=== PATIENT | male | born 1940 | race Caucasian/White ===

== ENCOUNTER → 2017-02-02 | Outpatient (CLI) | payer MEDICARE, BC ==
[~2017-02-02] MED LIST: ACET160S6 GT; ASPI325T OR; ASPI325T PO; BROMOCRIPTINE MESYLATE PO; Docusate Sod/Senna PO; FENT100D25 TD; FENTANYL PATCH TOP; GLIM1TAB PO; GLIP2.5T6 PO; HCTZ; KEPP1TAB2 PO; KEPP500T13 PO; LAMO10TA PO; LAMO25TA2 PO; LISI-538 PO; LISINIPRIL PO; LOVE1INJ SC; METFORMIN PO; MILKSUS PO; NORV2TAB PO; NORV5TAB PO; OMEP20TA7 OR; OTC ALLERGY MED; PARO20TA3 PO; PAXI20TA OR; PEG1POW PO; PERCOCET PO; QUET1TAB7 PO; SERO1TAB3 PO; SIMV40TA2 PO; SIMVASTATIN PD; VIMP100T PO; ZOFR20TA PO; ZYPR5TAB OR
--- NOTE | 2017-02-02 11:14 | REP ---
CT CERVICAL SPINE WITHOUT CONTRAST: HISTORY: Cervicalgia. There is no acute fracture or subluxation. A disc bulge is present at the C3-4 level. Disc bulges with associated osteophyte formation are present at the C4-5 through C6-7 levels. There is minimal narrowing of the spinal canal. Uncinate process and/or facet hypertrophy are present at the C3-4 through C6-7 levels. These findings produce minimal to severe narrowing of the neural foramina. The C3-4 through C6-7 intervertebral discs are decreased in height consistent with disc degeneration. IMPRESSION: 1. There is no acute fracture or subluxation. 2. There is cervical spondylosis at the C3-4 through C6-7 levels. Signed by Jaime Watson MD 02/02/2017 11:28 A
== END ==
LOC: M RAD 09:55
PROVIDERS: ATTEND Psychiatry & Neurology Neurology
DX: M54.2 Cervicalgia (principal); M54.81 Occipital neuralgia; M43.02 Spondylolysis, cervical region